=== PATIENT | male | born 1965 | race Caucasian/White ===

== ENCOUNTER 2016-11-04 10:06 | Day surgery (SDC) | payer MEDICAID ==
[2016-11-04] MEDS ORDERED: LR 1,000 ML IV ONE (10:57)
--- NOTE | 2016-11-04 13:09 | GPN ---
[f rep st] PROCEDURE NOTE DATE OF PROCEDURE: 11/04/2016 PROCEDURE: Colonoscopy. INDICATION: The patient is a 51-year-old male, who presents for screening colonoscopy. CONSENT: Risks, benefits, and alternatives of the procedure were discussed in great detail with the patient. Risks of infection, bleeding, perforation, and sedation were discussed. All questions answered and informed consent obtained. MEDICATIONS: Propofol. Please see anesthesia record for details. ESTIMATED BLOOD LOSS: None. COLONOSCOPIC EVALUATION: A rectal exam was done and no palpable mass was felt. The Olympus adult colonoscope was introduced into the rectum and advanced to the cecum, where the ileocecal valve and appendiceal orifice were seen. The quality of the prep was good. No polyps or masses were noted. IMPRESSION: Normal colonoscopy. RECOMMENDATIONS: 1. Repeat colonoscopy in 10 years. 2. Clear liquid diet and advance. 3. Continue prior medications. /[id number]/MODL MTDD
== END 2016-11-04 14:00 | disposition home or self-care (01) ==
LOC: FSGY 10:06
PROVIDERS: ATTEND Internal Medicine Gastroenterology
PROC: 0DJD8ZZ Inspection of Lower Intestinal Tract, Via Natural or Artificial Opening Endoscopic (ICD-10-PCS; principal; 2016-11-04 11:45)
DX: Z12.11 Encounter for screening for malignant neoplasm of colon (principal); G47.00 Insomnia, unspecified; Z87.820 Personal history of traumatic brain injury